=== PATIENT | female | born 1980 | race Caucasian/White ===

== ENCOUNTER 2017-09-22 20:10 | Emergency (ER) | payer OTHER ==
[~2017-09-22] VITALS: Ht 170.2 cm; Wt 65.2 kg
[~2017-09-22 20:10] MED LIST: PHENERGAN1.25 MG/ML PO; ZITHROMAX Z-PA250 MG PO
[2017-09-22 21:41] LABS: EOSINOPHIL (%) 0.4 % (0-5); EOSINOPHIL COUNT 0.1 K/uL (0-0.3); HEMATOCRIT 41.4 % (36.0-46.0); IMMATURE GRANULOCYTE (%) 0.4 % (0.0-0.7); IMMATURE GRANULOCYTE COUNT 0.1 K/uL; INSTRUMENT ABS NEUTROPHIL CT 8.5 K/uL; LYMPHOCYTE COUNT 2.4 K/uL (1.0-2.8); MCH 32.7 PG (29.0-34.0); MCHC 35.5 G/DL (30.0-36.0); MEAN PLAT.VOLUME 10.6 uM^3 (9.5-12.4); MONOCYTE (%) 7.6 % (3-12); MONOCYTE COUNT 0.9 K/uL (0-0.8); NEUTROPHIL (%) 71.2 % (45-76); NEUTROPHIL COUNT 8.5 K/uL (1.8-6.4); PLATELET COUNT 301 K/uL (156-360); RBC DIS.WIDTH-CV 12.6 % (11.8-14.6); RBC DIS.WIDTH-SD 42.3 % (39-53); WHITE BLOOD COUNT 11.9 K/uL (4.1-10.2)
[2017-09-22 21:47] LABS: CHLORIDE 106 mEq/L (99-109); SODIUM 142 mEq/L (136-147)
[2017-09-22 21:49] LABS: GLUCOSE 104 mg/dL (70-99)
[2017-09-22 21:50] LABS: ANION GAP 12 MEQ/L (2-14)
[2017-09-22 21:52] LABS: SERUM ETHYL ALCOHOL < 10 mg/dL
[2017-09-22 21:53] LABS: GFR ESTIMATE (CALCULATED) > 59 mL/min/
[2017-09-22 21:54] LABS: UREA NITROGEN (BUN) 11 mg/dL (9-23)
[2017-09-22 22:06] LABS: QUANTITATIVE HCG < 4.0 MIU/ML
[2017-09-23 08:42] LABS: AMPHETAMINE NEGATIVE (500 ng/mL); BARBITURATES NEGATIVE (200 ng/mL); BENZODIAZEPINES PRESUMPTIVE POSITIVE (150 ng/mL); COCAINE NEGATIVE (150 ng/mL); METHADONE NEGATIVE (200 ng/mL); METHAMPHETAMINE NEGATIVE (500 ng/mL); OPIATES (MORPHINE) NEGATIVE (100 ng/mL); PHENCYCLIDINE NEGATIVE (25 ng/mL); THC CANNABINOIDS PRESUMPTIVE POSITIVE (50 ng/mL); TRICYCLIC ANTIDEPRESSANTS NEGATIVE (300 ng/mL)
[2017-09-23 08:43] LABS: INTERNAL CONTROLS VALID? YES; OXYCODONE PRESUMPTIVE POSITIVE (100 ng/mL); PROPOXYPHENE NEGATIVE (300 ng/mL)
[2017-09-23 08:44] LABS: ADD MEDTOX COMMENT Y
[2017-09-23 09:30] LABS: BENZODIAZEPINES QUANT VALUE 0 NG/ML; BENZODIAZEPINES, URINE SCREEN Negative (200 ng/mL)
[2017-09-23 09:40] VITALS: BP 102/87
== END 2017-09-23 10:09 | disposition home or self-care (01) ==
LOC: EME 20:10
PROVIDERS: Emergency Medicine
DX: Z04.6 Encounter for general psychiatric examination, requested by authority (principal); F29 Unspecified psychosis not due to a substance or known physiological condition; F11.20 Opioid dependence, uncomplicated; F14.20 Cocaine dependence, uncomplicated; Z59.0 Homelessness; F17.200 Nicotine dependence, unspecified, uncomplicated
CPT/HCPCS: 70450; 80048; 84702; 84999; 85025; 90837; 99281; 99285; G0480; J1630; J2060

== ENCOUNTER 2018-03-23 15:19 | Emergency (ER) | payer OTHER ==
[~2018-03-23] VITALS: Ht 172.7 cm; Wt 80.2 kg
[2018-03-23 15:36] VITALS: BP 110/86
[2018-03-23 17:04] LABS: HEMATOCRIT 44.1 % (36.0-46.0); HEMOGLOBIN 15.7 G/DL (11.9-15.5); MCH 34.1 PG (29.0-34.0); MCHC 35.6 G/DL (30.0-36.0); MCV 95.7 FL (83-99); PLATELET COUNT 293 K/uL (156-360); RBC DIS.WIDTH-CV 12.8 % (11.8-14.6); RBC DIS.WIDTH-SD 45.6 % (39-53); RED BLOOD COUNT 4.61 M/uL (3.80-5.20); WHITE BLOOD COUNT 10.6 K/uL (4.1-10.2)
[2018-03-23 17:13] LABS: CHLORIDE 107 mEq/L (99-109); POTASSIUM 3.4 mEq/L (3.7-5.4); SODIUM 144 mEq/L (136-147)
[2018-03-23 17:14] LABS: GLUCOSE 95 mg/dL (70-99)
[2018-03-23 17:17] LABS: SERUM ETHYL ALCOHOL 370 mg/dL
[2018-03-23 17:18] LABS: CREATININE 0.8 mg/dL (0.6-1.3); GFR ESTIMATE (CALCULATED) > 59 mL/min/
[2018-03-23 17:19] LABS: UREA NITROGEN (BUN) 14 mg/dL (9-23)
[2018-03-23 17:28] LABS: QUANTITATIVE HCG < 4.0 MIU/ML
== END 2018-03-23 17:45 | disposition left against medical advice (07) ==
LOC: EME 15:19
PROVIDERS: Physician Assistant
DX: S00.81XA Abrasion of other part of head, initial encounter (principal); Y04.2XXA Assault by strike against or bumped into by another person, initial encounter; W22.8XXA Striking against or struck by other objects, initial encounter; Y92.828 Other wilderness area as the place of occurrence of the external cause; Z53.21 Procedure and treatment not carried out due to patient leaving prior to being seen by health care provider; F17.200 Nicotine dependence, unspecified, uncomplicated
CPT/HCPCS: 70450; 70486; 80048; 81003; 84702; 85027; 99281; 99285; G0480

== ENCOUNTER 2018-03-25 13:26 | Emergency (ER) | payer OTHER ==
[~2018-03-25] VITALS: Ht 170.2 cm; Wt 68.1 kg
[2018-03-26 01:22] VITALS: BP 120/65
== END 2018-03-26 01:23 | disposition home or self-care (01) ==
LOC: EME 13:26
DX: F10.121 Alcohol abuse with intoxication delirium (principal); R45.1 Restlessness and agitation; S00.81XA Abrasion of other part of head, initial encounter; Y09 Assault by unspecified means; F17.200 Nicotine dependence, unspecified, uncomplicated; Z78.1 Physical restraint status
CPT/HCPCS: 99281; 99285; J1630; J2060; J3486

== ENCOUNTER 2018-06-17 22:40 | Emergency (ER) | payer OTHER ==
[~2018-06-17] VITALS: Ht 170.2 cm; Wt 67.9 kg
[2018-06-17 23:33] LABS: APPEARANCE CLEAR ((CLEAR)); BILIRUBIN NEGATIVE; BLOOD NEGATIVE; COLOR STRAW ((YELLOW)); GLUCOSE (STRIP) NEGATIVE; KETONES 5; LEUKOCYTES NEGATIVE; NITRITE NEGATIVE; PROTEIN (STRIP) NEGATIVE; SPECIFIC GRAVITY 1.003 (1.000-1.030); UCUL ADDED? NO; UROBILINOGEN 0.2 MG/DL (0.2-1.0)
[2018-06-17 23:36] LABS: HEMATOCRIT 41.8 % (36.0-46.0); HEMOGLOBIN 14.9 G/DL (11.9-15.5); MCH 34.4 PG (29.0-34.0); MCHC 35.6 G/DL (30.0-36.0); MCV 96.5 FL (83-99); PLATELET COUNT 190 K/uL (156-360); RBC DIS.WIDTH-CV 12.2 % (11.8-14.6); RBC DIS.WIDTH-SD 43.9 % (39-53); RED BLOOD COUNT 4.33 M/uL (3.80-5.20); WHITE BLOOD COUNT 15.5 K/uL (4.1-10.2)
[2018-06-17 23:42] LABS: AMPHETAMINE NEGATIVE (500 ng/mL); BARBITURATES NEGATIVE (200 ng/mL); BENZODIAZEPINES NEGATIVE (150 ng/mL); BUPRENORPHINE NEGATIVE (10 ng/mL); COCAINE NEGATIVE (150 ng/mL); METHADONE NEGATIVE (200 ng/mL); METHAMPHETAMINE NEGATIVE (500 ng/mL); OPIATES (MORPHINE) NEGATIVE (100 ng/mL); OXYCODONE NEGATIVE (100 ng/mL); PHENCYCLIDINE NEGATIVE (25 ng/mL); PROPOXYPHENE NEGATIVE (300 ng/mL); THC CANNABINOIDS PRESUMPTIVE POSITIVE (50 ng/mL); TRICYCLIC ANTIDEPRESSANTS NEGATIVE (300 ng/mL)
[2018-06-17 23:44] LABS: CHLORIDE 94 mEq/L (99-109); SODIUM 136 mEq/L (136-147)
[2018-06-17 23:46] LABS: GLUCOSE 104 mg/dL (70-99)
[2018-06-17 23:49] LABS: SERUM ETHYL ALCOHOL < 10 mg/dL
[2018-06-17 23:50] LABS: CREATININE 0.8 mg/dL (0.6-1.3); GFR ESTIMATE (CALCULATED) > 59 mL/min/
[2018-06-17 23:51] LABS: UREA NITROGEN (BUN) 11 mg/dL (9-23)
[2018-06-18] LABS: QUANTITATIVE HCG < 4.0 MIU/ML
[2018-06-18 04:50] VITALS: BP 158/108
== END 2018-06-18 04:53 | disposition home or self-care (01) ==
LOC: EME 22:40
PROVIDERS: Emergency Medicine
DX: F43.23 Adjustment disorder with mixed anxiety and depressed mood (principal); F10.10 Alcohol abuse, uncomplicated; E87.6 Hypokalemia; F41.9 Anxiety disorder, unspecified; F17.200 Nicotine dependence, unspecified, uncomplicated; Z87.19 Personal history of other diseases of the digestive system
CPT/HCPCS: 80048; 81003; 84702; 84999; 85027; 90839; 99281; 99284; G0480